=== PATIENT | female | born 1945 | race Caucasian/White ===

== ENCOUNTER 2018-07-08 04:06 | Observation (INO) ==
[2018-07-08] MEDS ORDERED: *HR* Morphine 2 MG/ML SYRINGE IVP PRN (06:17)
[2018-07-08] MEDS ORDERED: *HR* LORazepam 2 MG/ML VIAL IVP PRN (06:17)
[2018-07-08] MEDS ORDERED: Atropine 1% Opth Drops 100 DROP/5 ML BOTTLE SL PRN (06:17)
[2018-07-08] MEDS ORDERED: Naloxone 0.4 MG/ML INJ IVP PRN (06:17)
[2018-07-08] MEDS ORDERED: Ipratropium/Albuterol Neb 3 ML IH PRN (06:48)
[2018-07-08] MEDS ORDERED: Albuterol 2.5 MG/3 ML NEBULIZER IH PRN (06:49)
--- NOTE | 2018-07-08 07:28 | Internal Med History&Physical ---
Date of Encounter: 07/08/18 Time of Encounter: 05:40 Internal Medicine - H&P: HPI Chief complaint: respiratory failure Admitted From: Hospital to Hospital Transfer History of present illness: Ms. Cornelius is a 73 year old female who presented to [facility] in transfer from [facility]. She was transferred here at the request of the ER staff physician at [facility] for complaints of respiratory failure, hypothermia, concern for sepsis, acute renal failure, and severe hyponatremia. Prior to transfer to [facility], patient was reportedly awake, coherent, and refusing aggressive interventions in the ER. CODE STATUS established at [facility] was DNR arrest/DNI. Upon arrival to our hospital, transport team stopped by the ER and I was summoned to the ER STAT as patient was on the verge of respiratory arrest. There were no family members present at the time. Upon my brief and quick assessment, patient was unresponsive, audibly wheezing, and exhibiting severe respiratory distress. I contacted her daughter by telephone (Autumn Slater), and she confirmed patient's wishes and CODE status to be DNR CC. She requested comfort care measures only. As soon as I hung up the phone with Autumn, the rest of the family presented to the ER. She had 3 other children present who were next of kin. The all agreed and requested patient be made DNR CC and to proceed with comfort care measures only. I confirmed this with 3 azul lara present and with Autumn on the phone, and they all agreed that patient would not want anything heroic and/or anything aggressive performed. They wish to keep her comfortable and to let her go peacefully. I therefore requested palliative care bed for patient and canceled the ICU admission. Once patient arrived to the palliative care room, other than family members presented at the room and requested aggressive measures be performed, including intubation. I again met with all family members present. I discussed specifically with the 3 children who were next of kin what the patient's wishes were and they all agreed that patient would only want comfort care measures only. They did not want to have any aggressive treatment, diagnostics, and/or life-sustaining measures performed. At their request, and at the patient's prior expressed wishes, we agreed to proceed with comfort care measures only. I offered ample opportunities for all family members present to ask questions, express their concerns, and/or comments. All questions were answered. The 3 children who are next of kin agreed and requested to honor the patient's wishes and proceed with comfort care/palliative care measures only. I informed him that I am consulting up palliative care team as well and that we will provide Morphine, Ativan, Aerosols, and suctioning as needed. Patient will be strict DNR CC/palliative care patient. Of note, patient has not seen a physician in over 43 years, and we have no old records or labs to compare. She had a critical sodium of 109, creatinine of 4.66, white blood cell count of 21.5, hypothermia, and a chest x-ray concerning for atypical pneumonia with possible pulmonary edema and massive hiatal hernia. There was no other imaging performed at [facility]. I offered to proceed with further workup and treatment for sepsis as well as hyponatremia, but the family declined and requested to honor the patient's wishes and proceed with comfort care measures only. Therefore, I will not track any further labs, treat sepsis, and/or proceed with any aggressive/heroic measures. We will proceed with comfort care measures only and allow patient to pass peacefully. Past Med Surg Social Fam HX - Past Medical History Source: obtained from family Medical history: no medical history Psychiatric history: no psych history - Past Surgical History Surgical History: no surgical history - Social History Smoking Status: 2nd Hand Smoke Exposure Smokeless Tobacco Status: No Alcohol use: none Drug use: none Current living situation: Home Activity Level: Independent ambulation Recent Out of Country Travel Within the Last 8 Weeks: No - Family History Mother History Unknown: Yes Living Status: Father History Unknown: Yes Living Status: Internal Medicine - H&P: Meds No Known Home Drugs 07/08/18 [History] Allergy/AdvReac Type Severity Reaction Status Date / Time No Known Allergies Allergy Verified 07/08/18 02:19 ROS unobtainable: due to mental status Review of systems: Per family: patient has been confused, disoriented, and struggling to breathe for ~ 48 hours. Prior to that she was at her baseline and mentating/cognitively intact. + chills, fevers, cough, dyspnea, and somnolence last 48 hours. NO further ROS obtainable. - Constitutional Vitals: Resp Pulse Ox 32 99 07/08/18 06:41 07/08/18 06:41 General appearance: Present: severe distress Exam: unresponsive to verbal and painful stimuli; extreme work of breathing; audibly wheezing - Head Head exam: Present: atraumatic, normal inspection - Eye Eye exam: Present: PERRL. Absent: scleral icterus - ENT ENT exam: Present: mucous membranes dry, normal external ear exam - Neck Neck exam general surgery: Present: full ROM, supple. Absent: tenderness, nuchal rigidity, thyromegaly - Respiratory Respiratory exam: Present: accessory muscle use, prolonged expiratory phase, respiratory distress, rhonchi, wheezes, tachypnea. Absent: chest wall tenderness, rales, stridor - Cardiovascular Cardiovascular exam: Present: RRR, +S1, +S2. Absent: diastolic murmur, systolic murmur - GI/Abdominal GI/Abdominal exam: Present: soft. Absent: tenderness - Extremities Exam Extremities exam: Present: full ROM, mottling (peripherally). Absent: calf tenderness, normal capillary refill (4 seconds), pedal edema, tenderness, warm (cool skin) - Neurological Exam Neurological exam: Present: altered. Absent: alert Additional comments: somnolent; unresponsive - Skin Skin exam: Present: cyanosis (peripheral), dry Additional comments: cool Internal Med - H&P Results - Labs Labs: Pertinent labs from [facility] include the following: WBC 21.5 Hemoglobin 13.3 Hematocrit 37.1 Platelet count 208 Sodium 109 Potassium 3.7 Chloride 69 Carbon Dioxide 23 BUN 33 Creatinine 4.66 Chest x-ray: Airspace disease versus pulmonary edema with massive hiatal hernia - Assessment and plan (1) Severe sepsis Current Visit: Yes Status: Acute Assessment and plan: 1. Per patient's prior expressed wishes and confirmation with next of kin (4 children), comfort care measures only to be provided. 2. No antibiotics, no treatment, no labs per family/patient wishes. 3. Consult palliative care team for ongoing care needs. (2) Hyponatremia Current Visit: Yes Status: Acute Assessment and plan: 1. Palliative care only as above. (3) Acute renal failure Current Visit: Yes Status: Acute Assessment and plan: 1. Palliative care only as above. Qualifiers: Acute renal failure type: unspecified Qualified Code(s): N17.9 - Acute kidney failure, unspecified - VTE Reasons for not Prescribing Prophylaxis: Medical contraindication
[2018-07-08 08:05] VITALS: BP 155/63
[2018-07-08] MEDS ORDERED: *HR* LORazepam Oral Conc 2 MG/ML SL PRN ×2 (09:29→10:40)
[2018-07-08] MEDS ORDERED: MORPHINE SUL Oral CONC 10 MG/0.5 ML ORAL.SYG SL PRN ×3 (09:30→10:40)
[2018-07-08] MEDS ORDERED: MethylPREDNISolone 40 MG/ML VIAL ONE (09:43)
--- NOTE | 2018-07-08 09:53 | Palliative - Consult Note ---
Date of Encounter: 07/08/18 Time of Encounter: 09:00 - Assessment and Plan (1) Respiratory failure Current Visit: Yes Status: Acute Assessment and plan: Patient's admitting oxygen saturation 83% on room air. With oxygen support of 10L 100%. Patient experiencing significant stridor, wheezing, and accessory muscle usage. Add Roxanol 5 mg SL PRN for comfort. Add Solumedrol to attempt to open airways. Qualifiers: Chronicity: acute Respiratory failure complication: hypoxia Qualified Code(s): J96.01 - Acute respiratory failure with hypoxia (2) Dyspnea Current Visit: Yes Status: Acute Assessment and plan: Stridor noted. Requested RN Zayda to bring patient Roxanol and Solumedrol. Qualifiers: Dyspnea type: unspecified Qualified Code(s): R06.00 - Dyspnea, unspecified (3) Anxiety Current Visit: Yes Status: Acute Assessment and plan: Patient noted to have some anxiety. Add Ativan SL PRN. (4) Hiatal hernia Current Visit: No Status: Acute (5) Pneumonia Current Visit: No Status: Acute Assessment and plan: Family has opted to not pursuit aggressive treatment measures. Desire to keep patient comfortable, as they report she is ready to pass in her time. Qualifiers: Pneumonia type: due to unspecified organism Laterality: right Lung location: unspecified part of lung Qualified Code(s): J18.9 - Pneumonia, unspecified organism (6) Pulmonary edema Current Visit: No Status: Acute Qualifiers: Chronicity: chronic Qualified Code(s): J81.1 - Chronic pulmonary edema (7) Acute renal failure Current Visit: Yes Status: Acute Assessment and plan: Family has opted for comfort care measures only. Qualifiers: Acute renal failure type: unspecified Qualified Code(s): N17.9 - Acute kidney failure, unspecified (8) Goals of care, counseling/discussion Current Visit: Yes Status: Acute Assessment and plan: Had family meeting with copious family members at 0900. Two children and son in law report patient had strong dislike for hospitals/medical care. Also aware that symptoms are currently not at a level that patient could safely be at home with family care. Expressed desire to keep patient comfortable. Discussed potential of admission to [facility]. 2 children present in agreement, desire to discuss with other family members whom should arrive at noon to confirm ready for entry into hospice care. Will call [facility] with official referral at that time. Family desires admission into [facility] and management of dyspnea/stridor prior to discharge home with hospice care. Educated family that we are unable to predict longevity of time remaining, concerned if true desire to get patient home may be unable to in the future; verbalized understanding. [id number]: Re-evaluation of patient's conditions. Patient having worsening dyspnea/anxiety. Changed SL PRN medications for comfort to q1h. Added Morphine 10mg SL PRN for severe dyspnea. Consulted with Dr. Christina, discussed with family. Plan to [facility] patient. Family in agreement. 1100: Called and spoke with Diana at [facility] to call referral; referral accepted. Will complete paperwork and send nurse to [place]. 1103: Spoke with Bed management, new account number attained. Palliative-CN HPI - Data of Consult Patient: new to practice Consult date: 07/08/18 Requesting Physician: Thiago Chacon MD Primary Care Provider: PCP NONE - Consult Narrative Palliative Care/Comfort Measures: Palliative care Reason for consult: Palliative care management History of present illness: Ms. Cornelius is a 73 year old female Arrived to [facility] on 07/08/18 as a transfer from [facility] for respiratory failure, hypothermia, concern of sepsis, acute renal failure, and severe hyponatremia. Patient found to be adamantly refusing aggressive interventions in the ER. Upon transfer, patient was brought to [place] ER and Physician paged; patient found unresponsive and on verge of severe respiratory arrest. Patients daughter Autumn was contacted and wishes confirmed to transition patient to [facility]; other 3 children presented to bedside and agreed for change of CODE STATUS. Comfort care measures initiated and palliative care consulted for care management. Patient lying in bed with eyes closed upon arrival for assessment. Noted to move arms slightly with tactile stimulation. Copious family members present at bedside, includin children, granddaughter, 3 brothers, son in law. Family reports patient had been having flu like symptoms since Friday, had refused any type of medical intervention, symptoms progressed to pneumonia type symptoms. Patients family had called EMS on Friday, but patient signed refusal and sent squad away. Patient found to be AMS this morning and family called squad and had bring to [facility]. Family reports patient had informed them that she was ready to pass away, and desired to at home. Patient resting with eyes closed, some distress noted. Stridor noted with respirations and periods of pauses present. CC: Thiago Chacon MD - Time Spent with Patient Time: Total time spent is greater than 50% in coordination of care (as documented) at patient's floor/unit and/or counseling patient: Time with patient: 45 minutes Past Med Surg Social Fam HX - Past Medical History Medical history: no medical history Psychiatric history: no psych history - Past Surgical History Surgical History: no surgical history - Social History Smoking Status: 2nd Hand Smoke Exposure Smokeless Tobacco Status: No Alcohol use: none Drug use: none - Family History Mother History Unknown: Yes Living Status: Father History Unknown: Yes Living Status: Medications and Allergies No Known Home Drugs 07/08/18 [History] Allergy/AdvReac Type Severity Reaction Status Date / Time No Known Allergies Allergy Verified 07/08/18 02:19 ROS unobtainable: due to mental status (family answered questions.) - Constitutional Constitutional ROS PAL: decreased appetite, fatigue, lethargy, malaise - Respiratory Respiratory: dyspnea, dyspnea on exertion, wheezing - Musculoskeletal Musculoskeletal ROS IM: muscle weakness - Neurological Neurological ROS: weakness - Psychiatric Psychiatric general PM: change in appetite, difficulty concentrating Palliative Care-Exam - Constitutional Vitals: Temp Pulse Resp BP Pulse Ox 98.3 F 85 24 155/63 100 07/08/18 08:03 07/08/18 08:03 07/08/18 08:03 07/08/18 08:03 07/08/18 08:03 General appearance: Present: mild distress, obese - Head Head Exam: Present: atraumatic, normal inspection - Eye Eye exam: Present: normal appearance - ENT ENT exam: Present: mucous membranes dry - Expanded ENT Exam Mouth Exam: Present: dry mucosa. Absent: drooling - Neck Neck exam: Present: normal inspection - Respiratory Respiratory exam: Present: accessory muscle use, decreased breath sounds (Pauses.), respiratory distress, stridor, wheezes - Cardiovascular Cardiovascular exam: Present: irregular rhythm - Expanded Cardiovascular Exam Peripheral pulses: 0: Posterior Tibialis (L), Posterior Tibialis (R), Dorsalis Pedis (L) PM, Dorsalis Pedis (R) PM, 1+: Radial (L), Radial (R), 2+: Femoral (L) PM, Femoral (R) PM (Popliteal pulses present bilaterally 2+) - GI/Abdominal Exam GI/Abdominal exam: Present: normal bowel sounds, soft. Absent: tenderness - Rectal Rectal exam: Present: deferred - Extremities Exam Extremities exam: Present: normal inspection. Absent: calf tenderness, pedal edema - Neurological Exam Neurological exam: Present: altered. Absent: oriented X3 - Expanded Neurological Exam Coma Scale Eye Opening: To Pain Coma Scale Motor Response: Withdraws to Pain Coma Scale Verbal Response: None Coma Scale Total: 7 - Psychiatric Psychiatric exam: Present: flat affect - Skin Skin exam: Present: dry, normal color, warm. Absent: mottled Consult Discharge Plan - Plan Referrals: NONE,PCP [Primary Care Provider] - Palliative Quality Palliative Quality: Screen for Code Status: Yes, Screen for Goals of Care: Yes, Screen for Pain: Yes, If Pain Regimen Started, Initiate Bowel Regimen: NA, Screen for Nausea/Vomitting: Yes Code Status: 07/08/18 06:17 Resuscitation Status: Active [RES] Routine Comment: Resuscitation Status: DNR-Comfort Care
--- NOTE | 2018-07-08 11:11 | Discharge Summary ---
Date of Encounter: 07/08/18 Time of Encounter: 11:08 - Discharge Diagnosis (1) Severe sepsis Priority: Primary Status: Acute (2) Hyponatremia Priority: Secondary Status: Acute (3) Acute renal failure Priority: Secondary Status: Acute Qualifiers: Acute renal failure type: unspecified Qualified Code(s): N17.9 - Acute kidney failure, unspecified (4) Hyponatremia Priority: Secondary Status: Acute (5) Anxiety Priority: Secondary Status: Acute (6) Dyspnea Priority: Secondary Status: Acute Qualifiers: Dyspnea type: unspecified Qualified Code(s): R06.00 - Dyspnea, unspecified (7) Goals of care, counseling/discussion Priority: Secondary Status: Acute (8) Elevated lactic acid level Priority: Secondary Status: Acute Hospital course: "Ms. Cornelius is a 73 year old female who presented to [facility] in transfer from [facility] ER. She was transferred here at the request of the ER staff physician at [facility] for complaints of respiratory failure, hypothermia, concern for sepsis, acute renal failure, and severe hyponatremia. Prior to transfer to [facility], patient was reportedly awake, coherent, and refusing aggressive interventions in the ER. CODE STATUS established at [facility] was DNR arrest/DNI. Upon arrival to our hospital, transport team stopped by the ER and I was summoned to the ER STAT as patient was on the verge of respiratory arrest. There were no family members present at the time. Upon my brief and quick assessment, patient was unresponsive, audibly wheezing, and exhibiting severe respiratory distress. I contacted her daughter by telephone (Autumn Slater), and she confirmed patient's wishes and CODE status to be DNR CC. She requested comfort care measures only. As soon as I hung up the phone with Autumn, the rest of the family presented to the ER. She had 3 other children present who were next of kin. The all agreed and requested patient be made DNR CC and to proceed with comfort care measures only. I confirmed this with 3 children present and with Autumn on the phone, and they all agreed that patient would not want anything heroic and/or anything aggressive performed. They wish to keep her comfortable and to let her go peacefully. I therefore requested p alliative care bed for patient and canceled the ICU admission. Once patient arrived to the palliative care room, other than family members presented at the room and requested aggressive measures be performed, including intubation. I again met with all family members present. I discussed specifically with the 3 children who were next of kin what the patient's wishes were and they all agreed that patient would only want comfort care measures only. They did not want to have any aggressive treatment, diagnostics, and/or life-sustaining measures performed. At their request, and at the patient's prior expressed wishes, we agreed to proceed with comfort care measures only. I offered ample opportunities for all family members present to ask questions, express their concerns, and/or comments. All questions were answered. The 3 children who are next of kin agreed and requested to honor the patient's wishes and proceed with comfort care/palliative care measures only. I informed him that I am consulting up palliative care team as well and that we will provide Morphine, Ativan, Aerosols, and suctioning as needed. Patient will be strict DNR CC/palliative care patient. Off note, patient has not seen a physician in over 43 years, and we have no old records or labs to compare. She had a critical sodium of 109, creatinine of 4.66, white blood cell count of 21.5, hypothermia, and a chest x-ray concerning for atypical pneumonia with possible pulmonary edema and massive hiatal hernia. There was no other imaging performed at [facility]. I offered to proceed with further workup and treatment for sepsis as well as hyponatremia, but the family declined and requested to honor the patient's wishes and proceed with comfort care measures only. Therefore, I will not track any further labs, treat sepsis, and/or proceed with any aggressive/heroic measures. We will proceed with comfort care measures only and allow patient to pass peacefully." patient was admitted with above presentation and palliative was called and I discussed the case with the team. she was transferred to inpatient hospice for further management. Discharge discussed with: patient, family, nurse, case management - Time Spent with Patient Total time spent providing and/or coordinating discharge services: Less than 30 minutes - Discharge Medications Home Medications: No Known Home Drugs 07/08/18 [History] Allergies/Adverse Reactions: Allergy/AdvReac Type Severity Reaction Status Date / Time No Known Allergies Allergy Verified 07/08/18 02:19 Date of admission: 07/08/18 05:34 Primary care physician: PCP NONE Consults: 07/08/18 06:17 Consult to Palliative Care [CONS] Routine Comment: Consulting Provider: [facility] Reason for Consult: palliative care management Call Completed: No - Constitutional Vitals: Temp Pulse Resp BP Pulse Ox 98.3 F 85 24 155/63 100 07/08/18 08:03 07/08/18 08:03 07/08/18 08:03 07/08/18 08:03 07/08/18 08:03 General appearance: Present: severe distress Exam: unresponsive to verbal and painful stimuli; extreme work of breathing; audibly wheezing - Head General appearance: Present: mild distress, obese Head Exam: Present: atraumatic, normal inspection Eye exam: Present: normal appearance ENT exam: Present: mucous membranes dry Mouth Exam: Present: dry mucosa. Absent: drooling Neck exam: Present: normal inspection Respiratory exam: Present: accessory muscle use, decreased breath sounds (Pauses.), respiratory distress, stridor, wheezes Cardiovascular exam: Present: irregular rhythm Peripheral pulses: 0: Posterior Tibialis (L), Posterior Tibialis (R), Dorsalis Pedis (L) PM, Dorsalis Pedis (R) PM, 1+: Radial (L), Radial (R), 2+: Femoral (L) PM, Femoral (R) PM (Popliteal pulses present bilaterally 2+) GI/Abdominal exam: Present: normal bowel sounds, soft. Absent: tenderness Extremities exam: Present: normal inspection. Absent: calf tenderness, pedal edema Neurological exam: Present: altered. Absent: oriented X3 - Patient Status Disposition: Transfer Other Condition: Undetermined Functional capacity at discharge: bed bound Overall status at discharge: other - Discharge Instructions Follow Up With: NONE,PCP [Primary Care Provider] - - Diet and Activity Activity: other Diet: other - VTE Reasons for not Prescribing Prophylaxis: Medical contraindication
--- NOTE | 2018-07-08 11:20 | Physician Discharge Referral ---
Home Health/Hosp Referral Info Transfer to: Hospice - Diagnosis (1) Severe sepsis Priority: Primary Status: Acute (2) Hyponatremia Priority: Secondary Status: Acute (3) Acute renal failure Priority: Secondary Status: Acute (4) Hyponatremia Priority: Secondary Status: Acute (5) Anxiety Priority: Secondary Status: Acute (6) Dyspnea Priority: Secondary Status: Acute (7) Goals of care, counseling/discussion Priority: Secondary Status: Acute (8) Elevated lactic acid level Priority: Secondary Status: Acute - Respiratory Orders Oxygen / L per min Smoking Cessation: Smoking cessation has been advised. For more information, call the [place] Tobacco Quit Line at 4-509-HWUUNOW. - Transfer Medications Home Medications: No Known Home Drugs 07/08/18 [History] Allergies/Adverse Reactions: Allergy/AdvReac Type Severity Reaction Status Date / Time No Known Allergies Allergy Verified 07/08/18 02:19 Certification: Further, I certify that my clinical findings support that this patient is homebound (i.e. absences from home require considerable and taxing effort and are for medical reasons or jehovah's witness services or infrequently or short duration when for other reasons) because: Homebound Reason: Patient requires assistance of a person or device to safely leave home Attestation: My signature below is to certify that this patient is under my care and that I, or nurse practitioner, or a physician's title i instructional assistant working with me, has a [id number] encounter with this patient.
[2018-07-08] MEDS ORDERED: MethylPREDNISolone 40 MG/ML VIAL IVP SCH (16:00)
== END 2018-07-08 11:28 | disposition other institution (70) ==
LOC: ICNU → 2ANU 06:09
PROVIDERS: ADMIT Pediatrics; ATTEND Pediatrics

== ENCOUNTER 2018-07-08 11:09 | Inpatient (IN) ==
[2018-07-08] MEDS ORDERED: Ipratropium/Albuterol Neb 3 ML IH PRN (11:11)
[2018-07-08] MEDS ORDERED: Ondansetron 4 MG/2 ML VIAL IVP PRN (11:11)
[2018-07-08] MEDS ORDERED: Bisacodyl 10 MG RECTAL SUPPOSITORY RC PRN (11:11)
[2018-07-08] MEDS ORDERED: Albuterol 2.5 MG/3 ML NEBULIZER IH PRN (11:11)
[2018-07-08] MEDS: MORPHINE SUL Oral CONC 10 MG/0.5 ML ORAL.SYG PO PRN ×4 (13:07→20:59)
[2018-07-08] MEDS: *HR* LORazepam Oral Conc 2 MG/ML PO PRN ×4 (13:07→22:04)
[2018-07-08] MEDS: Atropine Sulfate 1% 40 DROP/2 ML BOTTLE SL PRN ×2 (13:07→14:00)
[2018-07-08] MEDS ORDERED: Scopolamine Patch 1.5 MG PATCH.TD72 TD SCH (14:45)
[2018-07-08] MEDS: MethylPREDNISolone 40 MG/ML VIAL IVP SCH (18:27)
[2018-07-09] MEDS: MethylPREDNISolone 40 MG/ML VIAL IVP SCH ×3 (00:51→15:26)
[2018-07-09] MEDS: MORPHINE SUL Oral CONC 10 MG/0.5 ML ORAL.SYG PO PRN (00:52)
[2018-07-09] MEDS: Atropine Sulfate 1% 40 DROP/2 ML BOTTLE SL PRN ×5 (00:53→18:00)
[2018-07-09] MEDS: *HR* LORazepam Oral Conc 2 MG/ML PO PRN ×2 (05:27→12:54)
--- NOTE | 2018-07-09 09:45 | Pallative History & Physical ---
Date of Encounter: 07/09/18 Time of Encounter: 09:45 Assessment and Plan (1) Goals of care, counseling/discussion Current visit: No Status: Acute Patient still needs GIP admission for treatment of dyspnea and medication adjustment. Family would like pt to return home. If pt remains stable, will plan for return home tomorrow or Friday. (2) Pneumonia Current visit: No Status: Acute comfort care only, family opted against any further work up or treatment Qualifiers: Pneumonia type: due to unspecified organism Laterality: right Lung location: unspecified part of lung Qualified Code(s): J18.9 - Pneumonia, unspecified organism (3) Renal failure Current visit: No Status: Acute Qualifiers: Renal failure chronicity: unspecified chronicity Qualified Code(s): N19 - Unspecified kidney failure (4) Respiratory failure Current visit: No Status: Acute Pt remains on O2 10 L nc, sat 98 %, will reduce oxygen rate. No stridor or wheezing heard today, but pt with shallow breathing, using accessory muscles. Continue Roxanol prn as ordered, tressa continue solumedrol today. Qualifiers: Chronicity: acute Respiratory failure complication: hypoxia Qualified Code(s): J96.01 - Acute respiratory failure with hypoxia (5) Dyspnea Current visit: No Status: Acute remain dyspneic, but improved. will continue treatment with oxygen, roxanol and solumedrol Qualifiers: Dyspnea type: unspecified Qualified Code(s): R06.00 - Dyspnea, unspecified (6) Anxiety Current visit: No Status: Acute Pt was calm today. Received 5 doses of Ativan overnight. Continue Ativan prn. (7) Hospice care Current visit: Yes Status: Acute Secrtions: scopolamine patch in place Urinary retension: insert ware Constipation in pt on apioids, start Ducolax supp today and q 72hrs if no BM. Nausea: Zofran prn. Artificial tears Mouths care. Internal Medicine - H&P: HPI Chief complaint: hospice care Admitted From: Intrahospital Transfer Plans for Post Hospital Care: Hospice - Home History of present illness: Ms. Cornelius is a 73 year old female that presented to [facility] ER as a transfer from [facility] for acute respiratory distress. As per daughter, pt was in respiratory distress for few days, but refusing any work up or treatment. Daughter stated the only reason she was allowed to bring her to the hospital was to relieve her suffering. From ER imaging and labs, She had a critical sodium of 109, creatinine of 4.66, white blood cell count of 21.5, hypothermia, and a chest x-ray concerning for atypical pneumonia with possible pulmonary edema and massive hiatal hernia. Family refused any further work up and any treatment not pertinent to strict comfort as per patient's known wishes. Patient was very restless, with dyspnea and stridor and needed GIP admission for symptom management. PPS 20% Pt today was drowsy, not pening eyes, not responsive to stimuli, breathing more comfortably, but still using accessory muscles. In 24 hrs she received: Ativan 1 mg 5 doses and morphine 5 mg 5doses. She is also on solumedrol 40 mg q8hrs for stridor and albuterol prn. no wheezing were heard this morning, but diffused rales. Daughter noted that pt did not void since admission, will insert ware. Last BM was Friday or Friday. Will start Dulcolax supp prn. Past Med Surg Social Fam HX - Past Medical History Medical history: no medical history Psychiatric history: no psych history - Past Surgical History Surgical History: no surgical history - Social History Smoking Status: 2nd Hand Smoke Exposure Smokeless Tobacco Status: No Alcohol use: none Drug use: none - Family History Mother Living Status: Father Living Status: Internal Medicine - H&P: Meds No Known Home Drugs 07/08/18 [History] Allergy/AdvReac Type Severity Reaction Status Date / Time No Known Allergies Allergy Verified 07/08/18 02:19 ROS unobtainable: due to mental status Palliative Care-Exam - Constitutional Vitals: Temp Pulse Resp BP Pulse Ox 98.5 F 97 18 120/72 98 07/09/18 08:03 07/09/18 08:03 07/09/18 08:03 07/09/18 08:03 07/09/18 08:03 Exam: Vitals reviewed General appearance: lethargic, not responsive to stimuli, looks in moderate respiratory distress. Eyes: nonicteric EENT: oropharynx moist Neck: supple, no lymphadenopathy, no JVD Chest: increased effort, Bibasilar rales, no wheezing. Cardiovascular: regular rate and rhythm Gastrointestinal: soft, non-tender, non-distended Integumentary: normal Extremities: no cyanosis, dependent edema, no clubbing Musculoskeletal: no deformities Neurologic: non responsive to stimuli, moving all extremities when agitated. Palliative Quality Palliative Quality: Screen for Code Status: Yes, Screen for Goals of Care: Yes, Screen for Pain: Yes, If Pain Regimen Started, Initiate Bowel Regimen: Yes, Screen for Nausea/Vomitting: Yes Code Status: 07/08/18 11:11 Resuscitation Status: Active [RES] Routine Comment: Resuscitation Status: DNR-Comfort Care
[2018-07-09] MEDS: MORPHINE SUL Oral CONC 10 MG/0.5 ML ORAL.SYG SL PRN ×2 (09:57→15:27)
[2018-07-10] MEDS: MethylPREDNISolone 40 MG/ML VIAL IVP SCH ×2 (00:47→08:07)
[2018-07-10] MEDS: Atropine Sulfate 1% 40 DROP/2 ML BOTTLE SL PRN ×4 (00:48→10:15)
[2018-07-10 08:38] VITALS: BP 156/88
--- NOTE | 2018-07-10 09:51 | Physician Discharge Referral ---
Home Health/Hosp Referral Info Transfer to: Hospice Attending Provider: Carri Provider in Charge Post Discharge: Felt Puller - Diagnosis (1) Respiratory failure Status: Acute (2) Pneumonia Status: Acute (3) Renal failure Status: Acute (4) Elevated lactic acid level Status: Acute (5) Hypothermia Status: Acute (6) Severe sepsis Status: Acute (7) Acute renal failure Status: Acute (8) Dyspnea Status: Acute (9) Hospice care Status: Acute - Respiratory Orders Oxygen / L per min (8) Smoking Cessation: Smoking cessation has been advised. For more information, call the [employer] Tobacco Quit Line at 0-177-KXLQ-NOW. - Diet/Nutrition Diet/Nutrition Orders: Regular - Activity Activity Orders: Bedrest - Services Needed Following services are medically necessary services: Nursing, Home Health Aide - Transfer Medications Prescriptions: Ondansetron ODT [Zofran ODT] 4 mg SL Q6HR PRN 4 Days #16 tab.rapdis PRN Reason: Nausea Atropine 1% Opth Drops 2 drop SL Q1H PRN #1 bottle PRN Reason: Oral Secretions Bisacodyl [Dulcolax] 10 mg RC DAILY PRN 4 Days #4 supp.rect PRN Reason: Constipation LORazepam Oral Conc [Ativan Oral Conc] 1 mg PO Q1H PRN 4 Days #30 mls PRN Reason: Anxiety MORPHINE SUL Oral CONC [Roxanol Oral Conc] 10 mg PO Q1H PRN 4 Days #30 ml PRN Reason: Dyspnea Scopolamine Patch [Transderm-Scop] 1.5 mg TD Q72H PRN 4 Days #2 patch.td72 PRN Reason: copious secretions Home Medications: Atropine 1% Opth Drops 2 drop SL Q1H PRN #1 bottle 07/10/18 [Rx] Bisacodyl [Dulcolax] 10 mg RC DAILY PRN 4 Days #4 supp.rect 07/10/18 [Rx] LORazepam Oral Conc [Ativan Oral Conc] 1 mg PO Q1H PRN 4 Days #30 mls 07/10/18 [Rx] MORPHINE SUL Oral CONC [Roxanol Oral Conc] 10 mg PO Q1H PRN 4 Days #30 ml 07/10/18 [Rx] Ondansetron ODT [Zofran ODT] 4 mg SL Q6HR PRN 4 Days #16 tab.rapdis 07/10/18 [Rx] Scopolamine Patch [Transderm-Scop] 1.5 mg TD Q72H PRN 4 Days #2 patch.td72 07/10/18 [Rx] Allergies/Adverse Reactions: Allergy/AdvReac Type Severity Reaction Status Date / Time No Known Allergies Allergy Verified 07/08/18 02:19 Certification: Further, I certify that my clinical findings support that this patient is homebound (i.e. absences from home require considerable and taxing effort and are for medical reasons or yazidi services or infrequently or short duration when for other reasons) because: Homebound Reason: Patient requires assistance of a person or device to safely leave home, Absences from home are contraindicated except to recieve medical care, Post-surgery restriction and or conditions limit ability to leave home, Leaving home requires considerable and taxing effort due to condition, Altered mental status requiring supervision when leaving home, Severity of cardiac or pulmonary status limits activity tolerance Attestation: My signature below is to certify that this patient is under my care and that I, or nurse practitioner, or a physician's visitor service assistant working with me, has a [id number] encounter with this patient.
--- NOTE | 2018-07-10 09:54 | Discharge Summary ---
Date of Encounter: 07/10/18 Time of Encounter: 09:00 - Discharge Diagnosis (1) Respiratory failure Priority: Primary Status: Acute Comments: Patient being discharged home with hospice care. Dyspnea controlled. Qualifiers: Chronicity: acute Respiratory failure complication: hypoxia Qualified Code(s): J96.01 - Acute respiratory failure with hypoxia (2) Pneumonia Priority: Secondary Status: Acute Qualifiers: Pneumonia type: due to unspecified organism Laterality: right Lung location: unspecified part of lung Qualified Code(s): J18.9 - Pneumonia, unspecified organism (3) Renal failure Priority: Primary Status: Acute Qualifiers: Renal failure chronicity: unspecified chronicity Qualified Code(s): N19 - Unspecified kidney failure (4) Elevated lactic acid level Priority: Secondary Status: Acute (5) Severe sepsis Priority: Secondary Status: Acute (6) Acute renal failure Priority: Secondary Status: Acute Qualifiers: Acute renal failure type: unspecified Qualified Code(s): N17.9 - Acute kidney failure, unspecified (7) Dyspnea Priority: Secondary Status: Acute Qualifiers: Dyspnea type: unspecified Qualified Code(s): R06.00 - Dyspnea, unspecified (8) Hospice care Priority: Secondary Status: Acute - Hospital Course Hospital course: Ms. Cornelisu is a 73 year old female - Time Spent with Patient Total time spent providing and/or coordinating discharge services: - Discharge Medications Prescriptions: Ondansetron ODT [Zofran ODT] 4 mg SL Q6HR PRN 4 Days #16 tab.rapdis PRN Reason: Nausea Atropine 1% Opth Drops 2 drop SL Q1H PRN #1 bottle PRN Reason: Oral Secretions Bisacodyl [Dulcolax] 10 mg RC DAILY PRN 4 Days #4 supp.rect PRN Reason: Constipation LORazepam Oral Conc [Ativan Oral Conc] 1 mg PO Q1H PRN 4 Days #30 mls PRN Reason: Anxiety MORPHINE SUL Oral CONC [Roxanol Oral Conc] 10 mg PO Q1H PRN 4 Days #30 ml PRN Reason: Dyspnea Scopolamine Patch [Transderm-Scop] 1.5 mg TD Q72H PRN 4 Days #2 patch.td72 PRN Reason: copious secretions Home Medications: Atropine 1% Opth Drops 2 drop SL Q1H PRN #1 bottle 07/10/18 [Rx] Bisacodyl [Dulcolax] 10 mg RC DAILY PRN 4 Days #4 supp.rect 07/10/18 [Rx] LORazepam Oral Conc [Ativan Oral Conc] 1 mg PO Q1H PRN 4 Days #30 mls 07/10/18 [Rx] MORPHINE SUL Oral CONC [Roxanol Oral Conc] 10 mg PO Q1H PRN 4 Days #30 ml 07/10/18 [Rx] Ondansetron ODT [Zofran ODT] 4 mg SL Q6HR PRN 4 Days #16 tab.rapdis 07/10/18 [Rx] Scopolamine Patch [Transderm-Scop] 1.5 mg TD Q72H PRN 4 Days #2 patch.td72 07/10/18 [Rx] Allergies/Adverse Reactions: Allergy/AdvReac Type Severity Reaction Status Date / Time No Known Allergies Allergy Verified 07/08/18 02:19 Internal Medicine - DS: Prov Date of admission: 07/08/18 11:30 Primary care physician: PCP NONE Admitting clinician: Sally Christina Attending physician on admission: Sally Christina Consults: 07/08/18 11:12 Consult to Palliative Care [CONS] Routine Comment: Consulting Provider: Palliative Care Concrete Reason for Consult: GIP management. Call Completed: No Attending physician on discharge: Sally Christina Discharging clinician: Nohemi Atkins date of discharge: 07/10/18 Internal Medicine - DS: Exam - Constitutional Vitals: Vital Signs Temp Pulse Resp BP Pulse Ox 07/10/18 08:37 98.2 F 102 14 156/88 97 07/09/18 20:39 98.3 F 101 16 122/77 97 Intake and Output 07/09/18 07/10/18 07/10/18 23:59 07:59 15:59 Output Total 0 / 0 Balance 0 / 0 Output: Urine 0 / 0 Other: Weight 67.3 kg Patient Weight 07/10/18 23:59 Weight 67.3 kg General appearance: no acute distress, obese - Head Head exam: Present: atraumatic, normal inspection - Eye Eye exam: Present: normal appearance - ENT ENT exam: Present: mucous membranes dry, normal external ear exam - Neck Neck exam: Present: normal inspection - Respiratory Respiratory exam: Present: accessory muscle use, CTAB, respiratory distress. Absent: stridor, wheezes - Cardiovascular Cardiovascular exam: Present: irregular rhythm - GI/Abdominal GI/Abdominal exam: Present: diminished bowel sounds, distended. Absent: tenderness - Rectal Rectal exam: Present: deferred - Additional comments: Keep ware catheter intact. - Extremities Exam Extremities exam: Present: pedal edema. Absent: tenderness - Neurological Exam Neurological exam: Present: altered - Psychiatric Psychiatric exam: Present: flat affect - Patient Status Disposition: Hospice - Home Condition: Serious Functional capacity at discharge: bed bound Overall status at discharge: patient is not back to baseline - Discharge Instructions Follow Up With: NONE,PCP [Primary Care Provider] - - Diet and Activity Activity: wear oxygen at all times Diet: other (NPO)
--- NOTE | 2018-07-10 10:02 | Palliative Progress Note ---
Date of Encounter: 07/10/18 Time of Encounter: 09:00 - Assessment and plan (1) Respiratory failure Current Visit: No Status: Acute Assessment and plan: Patient being discharged home with [facility] today. Oxygen saturation 97% on 11L. Qualifiers: Chronicity: acute Respiratory failure complication: hypoxia Qualified Code(s): J96.01 - Acute respiratory failure with hypoxia (2) Pneumonia Current Visit: No Status: Acute Qualifiers: Pneumonia type: due to unspecified organism Laterality: right Lung location: unspecified part of lung Qualified Code(s): J18.9 - Pneumonia, unspecified organism (3) Renal failure Current Visit: No Status: Acute Qualifiers: Renal failure chronicity: unspecified chronicity Qualified Code(s): N19 - Unspecified kidney failure (4) Elevated lactic acid level Current Visit: No Status: Acute (5) Severe sepsis Current Visit: No Status: Acute (6) Acute renal failure Current Visit: No Status: Acute Assessment and plan: No urine output noted to catheter during assessment. Qualifiers: Acute renal failure type: unspecified Qualified Code(s): N17.9 - Acute kidney failure, unspecified (7) Dyspnea Current Visit: No Status: Acute Assessment and plan: Controlled with Ativan and Roxanol. Qualifiers: Dyspnea type: unspecified Qualified Code(s): R06.00 - Dyspnea, unspecified (8) Hospice care Current Visit: Yes Status: Acute Assessment and plan: Plan to discharge home today with [facility]. Patient noted to have long pauses in respirations. Family educated on risk of passing in ambulance. Inquired if patient could be brought home if passes in ambulance. 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 Family in agreement. Prescriptions written for comfort meds and sent to [facility]. Notified Rosanne ARCOS of planned discharge for 11 am, prescriptions being sent, and need for DNRCC form to be sent with ambulance and notification of plan should patient pass in transport. Discharge order written. - Time Spent With Patient Total time spent is greater than 50% in coordination of care (as documented) at patient's floor/unit and/or counseling patient: 25 - 35 minutes - Subjective Interval history: Patient lying in bed with eyes closed upon arrival for assessment. Family present at bedside. Patient nonresponsive to stimulation. Patient's vital signs stable. Long pauses noted to respiration pattern during assessment. Family reports dyspnea and pain appear to be controlled. - Constitutional General appearance: Present: no acute distress - Head Head exam: Present: atraumatic, normal inspection - Eye Eye exam: Absent: periorbital swelling, periorbital tenderness Pupils: Present: normal accommodation - ENT ENT exam: Present: mucous membranes dry - Neck Neck exam: Present: normal inspection - Respiratory Respiratory exam: Present: accessory muscle use, CTAB. Absent: rhonchi, wheezes - Cardiovascular Cardiovascular exam: Present: irregular rhythm - GI/Abdominal GI/Abdominal exam: Present: diminished bowel sounds, distended - Rectal Rectal exam: Present: deferred - Additional comments: Jeffery in place - Extremities Exam Extremities exam: Present: pedal edema - Neurological Exam Neurological exam: Present: altered - Psychiatric Psychiatric exam: Present: flat affect - Skin Skin exam: Present: intact, warm. Absent: mottled Palliative Quality Palliative Quality: Screen for Code Status: Yes, Screen for Goals of Care: Yes, Screen for Pain: Yes, If Pain Regimen Started, Initiate Bowel Regimen: Yes, Screen for Nausea/Vomitting: Yes Code Status: 07/08/18 11:11 Resuscitation Status: Active [RES] Routine Comment: Resuscitation Status: DNR-Comfort Care Palliative Scale - Palliative Performance Scale How ambulatory is this patient?: Totally bed bound What is patient's level of activity and evidence of disease?: Unable to do any work, Extensive disease How much self-care assistance does patient require?: Total care How much oral intake does the patient have?: Mouth care only What is this patient's level of consciousness?: Drowsy or coma with or without confusion Palliative Performance Score: 10 % Consult Discharge Plan - Plan Referrals: NONE,PCP [Primary Care Provider] - Prescriptions: Ondansetron ODT [Zofran ODT] 4 mg SL Q6HR PRN 4 Days #16 tab.rapdis PRN Reason: Nausea Atropine 1% Opth Drops 2 drop SL Q1H PRN #1 bottle PRN Reason: Oral Secretions Bisacodyl [Dulcolax] 10 mg RC DAILY PRN 4 Days #4 supp.rect PRN Reason: Constipation LORazepam Oral Conc [Ativan Oral Conc] 1 mg PO Q1H PRN 4 Days #30 mls PRN Reason: Anxiety MORPHINE SUL Oral CONC [Roxanol Oral Conc] 10 mg PO Q1H PRN 4 Days #30 ml PRN Reason: Dyspnea Scopolamine Patch [Transderm-Scop] 1.5 mg TD Q72H PRN 4 Days #2 patch.td72 PRN Reason: copious secretions
== END 2018-07-10 11:09 | disposition hospice, home (50) | DRG 871 ==
LOC: 2ANU 11:30
PROVIDERS: ADMIT Internal Medicine Hospice and Palliative Medicine; ATTEND Internal Medicine Hospice and Palliative Medicine